=== PATIENT | female | born 1940 | race Caucasian/White ===

== ENCOUNTER 2016-11-10 21:43 | Emergency (ER) | payer MEDICARE, BC ==
--- NOTE | 2016-11-18 11:03 | ER ---
ADMIT: 11/10/2016 RM/LOC: ER [facility] MR#: [id number] [address] [id number] [place] [address] [place] [address] Emergency Room Report SEX: F AGE: 76 : 1940 DATE: 11/10/2016 ADDENDUM: CHIEF COMPLAINT: Right elbow pain. HISTORY OF PRESENT ILLNESS: This is a 76-year-old female, who fell in the parking lot while getting gas. There was seen to be a hole in the pavement, she tripped over it. Her main complaint is her right elbow. She does have a radial head fracture. I placed a long-arm splint. I am giving her a sling to go home with and having her to follow up with Ortho this week. I did offer her pain meds, but she only wants to take Motrin or Tylenol for pain, so I told her as long as she is comfortable with that, to go ahead and do that. CLINICAL IMPRESSION: Radial head fracture of the right arm. SAE Campos / Vaughn Dinero MD / supa JOB #: [id number] CC: Vaughn Dinero MD, Attending Physician Selin Raines MD, Family Physician
== END 2016-11-10 23:49 | disposition home or self-care (01) ==
LOC: ER 21:43
PROC: 2W3CX1Z Immobilization of Right Lower Arm using Splint (ICD-10-PCS; principal; 2016-11-10)
DX: S52.121A Displaced fracture of head of right radius, initial encounter for closed fracture (principal); Z90.89 Acquired absence of other organs; W01.0XXA Fall on same level from slipping, tripping and stumbling without subsequent striking against object, initial encounter; Y92.481 Parking lot as the place of occurrence of the external cause